=== PATIENT | female | born 1995 | race Caucasian/White ===

== ENCOUNTER 2024-03-28 12:59 | Emergency (ER) | payer SELFPAY ==
[~2024-03-28] VITALS: Ht 165.1 cm; Wt 97.5 kg
[2024-03-28] VITALS (21 sets, daily range): BP systolic 83–109; BP diastolic 46–69
[2024-03-28] MEDS ORDERED: Diph, Acellular Pertussis, Tet 0.5 ML/VIAL (Tdap) SDV IM ONE (14:15)
[2024-03-28] MEDS ORDERED: AMOXICILLIN & POT CLAVULANATE 875 MG/TAB PO ONE (14:15)
[2024-03-28] MEDS ORDERED: IBUPROFEN 800 MG/TAB PO ONE (14:15)
[2024-03-28] MEDS ORDERED: IBUPROFEN600 MG PO (17:41)
[2024-03-28] MEDS ORDERED: OMEPRAZOLE DR40 MG PO (17:41)
[2024-03-28] MEDS ORDERED: AMOX/K CLAV875 M1 PO (17:41)
== END 2024-03-28 17:44 | disposition home or self-care (01) | DRG 603 ==
LOC: ED 12:59
DX: L03.011 Cellulitis of right finger (principal); F17.290 Nicotine dependence, other tobacco product, uncomplicated